=== PATIENT | male | born 1955 | race Caucasian/White ===

== ENCOUNTER 2016-05-20 16:47 | Emergency (ER) | payer SELFPAY ==
[2016-05-20] MEDS ORDERED: 0.9 % SODIUM CHLORIDE 1,000 ML IV SCH (18:00)
[2016-05-20] MEDS ORDERED: HYOSCYAMINE SULFATE 0.125 MG TAB.SUBL SL ONE (18:01)
[2016-05-20] MEDS ORDERED: METOCLOPRAMIDE HCL 5 MG TABLET PO ONE (18:01)
[2016-05-20] MEDS ORDERED: ONDANSETRON HCL/PF 4 MG/ 2ML VIAL IVP ONE (18:04)
[2016-05-20 18:05] LABS: BASOPHILS % 0.2 (0.0-1.5); EOSINOPHILS % 0.4 % (0.0-6.8); MEAN CORPUSCULAR HEMOGLOBIN 31.2 pg (28.0-34.0); MONOCYTES # 0.7 # k/uL (0.0-0.9); MONOCYTES % 3.9 % (0.0-11.0); NEUTROPHILS # 13.8 # k/uL (1.4-7.7)
[2016-05-20] MEDS ORDERED: 0.9 % SODIUM CHLORIDE 1,000 ML IV ONE ×2 (18:06→19:41)
[2016-05-20 18:34] LABS: eGFR (African) > 60; eGFR (Non-African) > 60
--- NOTE | 2016-05-20 18:57 | Diagnostic Imaging Report ---
[facility] [id number] [facility] [address] [place], [place]. [address] Report Submission Date: May 20, 2016 6:55:50 PM CDT Patient Study Name: GARRICK GRANADOS Date: May 20, 2016 6:22:48 PM CDT Modality Type: CT\SR Gender: M Description: CT ABD & PELVIS W/O CO : 51 Institution: [facility] Physician: GARRICK PRESSLEY - ER CT abdomen and pelvis without IV contrast Clinical history: Abdominal pain for 1 month , nausea , vomiting and diarrhea with weight loss Radiation dose DLP [id number] Air in the portal venous system of the liver. 3.4 cm mass of the left adrenal gland with 2 cm 2nd mass inferior to it suspicious for a adrenal metastases. Normal pancreas and spleen. Normal kidneys. Intestinal pneumatosis which could be a sign of a ischemic bowel. No edema or bowel obstruction. No free fluid in the abdomen . Large prostate up to 5 cm. Degenerated disc at L5/S1. Impression: Air in the portal venous system of the liver with an intestinal pneumatosis , which could be a sign of a ischemic bowel but appear to be less likely , probably benign process, clinical correlation is recommended . Left adrenal masses suspicious for metastases Large prostate , degenerative disc and L5/S1 and Electronically signed on May 20, 2016 6:55:50 PM CDT by: Reji MAYA
[2016-05-20] MEDS ORDERED: PHARMACY KEY 1 EACH EACH MC ONE (19:36)
--- NOTE | 2016-05-20 19:44 | ED Physician Documentation ---
Abdominal Pain - HISTORIAN Historian: patient - HPI Stated Complaint: abdominal pain Chief Complaint: Abdominal Pain Additonal Information: pain over last month, worse today, n/v today, sporadic, loose stools, belching, no melena, no hematochezia Onset: hours (3-4) Duration: sudden-onset, persistent, worse Timing: worse Context: denies: out of country travel, bad food, recent trauma Severity: moderate Quality: aching Front/Back of Body, Lg (Color): 1 - pain Associated Symptoms: nausea, vomiting, diarrhea Exacerbated by: movements Relieved by: nothing, other (helped by drawen leg position) Further Comments: no - ROS CONST: no problems GI/: other (as above) CVS/RESP: none EYES/ENT: none MS/SKIN/LYMPH: none NEURO/PSYCH: none - SOCIAL HX Smoking History: cigarettes Alcohol Use: none Drug Use: none - FAMILY HX Family History: no significant history - PAST HX Past History: none Ischemic Bowel Risk Factors: none Other History: none Surgeries/Procedures: none Immunizations: referred to PCP Home Medications: Ambulatory Orders Medication Instructions Recorded Omeprazole [Prilosec] 20 mg PO 05/20/16 Allergies/Adverse Reactions: Allergies Allergy/AdvReac Type Severity Reaction Status Date / Time No Known Allergies Allergy Verified 05/20/16 18:25 - VITAL SIGNS Vital Signs: Vital Signs Temp Pulse Resp BP Pulse Ox 97.7 F 96 H 18 158/96 98 05/20/16 17:02 05/20/16 17:02 05/20/16 17:02 05/20/16 17:02 05/20/16 17:02 - REVIEWED ASSESSMENTS Nursing Assessment Reviewed: Yes Vitals Reviewed: Yes Progress - Results/Orders Results/Orders: cbc, cmp, ua, amylase, ct abdomen/pelvis ordered - Progress Progress: pt. given 10 mg Reglan, 0.25 mg hyoscyamine, 8 mg Zofran in er with decrease in pain from 9 to 5/10 Critical Care Note - Critical Care Note Total Time (mins): 0 ED Results Lab/Radiology - Lab Results Lab Results: Lab Results 05/20/16 05/20/16 17:51 17:51 WBC 17.75 K/ul H K/ul (4.00-12.00) RBC 5.04 M/ul M/ul (3.90-5.20) Hgb 15.7 g/dL g/dL (12.0-18.0) Hct 45.2 % % (37.0-53.0) MCV 89.7 fl fl (80.0-100.0) MCH 31.2 pg pg (28.0-34.0) MCHC 34.7 g/dL g/dL (30.0-36.0) RDW 13.6 % % (11.3-14.3) Plt Count 282 K/mm3 K/mm3 (130-400) Neut % (Auto) 77.6 % % (39.0-79.0) Lymph % (Auto) 16.6 % % (16.0-50.0) Kershaw % (Auto) 3.9 % % (0.0-11.0) Eos % (Auto) 0.4 % % (0.0-6.8) Baso % (Auto) 0.2 (0.0-1.5) Neut # 13.8 # k/uL H # k/uL (1.4-7.7) Lymph # 3.0 # k/uL # k/uL (0.6-4.0) Kershaw # 0.7 # k/uL # k/uL (0.0-0.9) Eos # 0.1 # k/uL # k/uL (0.0-0.6) Baso # 0.0 # k/uL # k/uL (0.0-0.5) Reactive Lymphs % 1.2 % % (0.0-5.0) Reactive Lymphs # 0.2 # k/uL # k/uL (0.0-0.8) Sodium 139 mmol/L mmol/L (136-145) Potassium 3.1 mmol/L L mmol/L (3.5-5.0) Chloride 103 mmol/L mmol/L (98-110) Carbon Dioxide 25 mmol/L mmol/L (20-32) BUN 16 mg/dL mg/dL (10-26) Creatinine 0.5 mg/dL mg/dL (0.4-1.5) Estimated Creat Clear 207 Est GFR ( Amer) > 60 (60 - ) Est GFR (Non-Af Amer) > 60 (60 - ) Glucose 189 mg/dL H mg/dL (70-99) Calcium 9.7 mg/dL mg/dL (8.5-10.5) Total Bilirubin 0.5 mg/dL mg/dL (0.2-1.2) AST 13 U/L U/L (0-41) ALT 21 U/L U/L (0-45) Alkaline Phosphatase 120 U/L H U/L (46-116) Total Protein 7.3 g/dL g/dL (6.0-8.5) Albumin 4.5 g/dL g/dL (3.0-5.5) Amylase 31 U/L U/L (20-104) - Radiology Radiology Impressions: ct of abdomen shows air in portal vein and intestinal pneumatosis suggestive of ischemic bowel disease. - Orders Orders: ED Orders Category Date Time Status Place Saline Lock/IV Now Care 05/20/16 18:[address] ABD & PELVIS W/O CON Stat Exams 05/20/16 Completed AMYLASE Routine Lab 05/20/16 17:51 Completed CBC/PLATELET/DIFF Routine Lab 05/20/16 17:51 Completed CMP Routine Lab 05/20/16 17:51 Completed URINALYSIS Routine Lab 05/20/16 17:51 Ordered 0.9 % Sodium Chloride [Normal Saline] 1,000 ml Med 05/20/16 18:00 Ordered IV .Q1H Hyoscyamine Sulfate [[place]scimin Sl] Med 05/20/16 18:01 Discontinued 0.25 mg SL NOW ONE Metoclopramide HCl [Reglan] Med 05/20/16 18:01 Discontinued 10 mg PO NOW ONE Ondansetron HCl/Pf [Zofran 4 mg/2 ml] Med 05/20/16 18:04 Discontinued 8 mg IVP NOW ONE Abdominal Pain Physical Exam - Physical Exam General Appearance: alert, moderate distress (alternates from laying on side with knees drawn but sits up also without sevre increase in pain) EENT: eye inspection normal, ENT inspection normal, pharynx normal, no signs of dehydration, JACOB, no nystagmus, TM's nml NECK: normal inspection, thyroid normal, supple RESPIRATORY: no resp distress, chest non-tender, breath sounds normal CVS: reg rate & rhythm, heart sounds normal, equal pulses ABDOMEN: tenderness (generalized, worst in lower quadrants and suprapubic area.) , decreased BS, tympanic BS, distended, guarding BACK: normal inspection, no CVA tenderness SKIN: warm/dry, normal color EXTREMITIES: non-tender, normal range of motion, no evidence of injury NEURO: oriented X3, CN's nml as tested, motor nml, sensation nml, mood/affect nml, cognition normal Vital Signs: Vital Signs Temp Pulse Resp BP Pulse Ox 97.7 F 96 H 18 158/96 98 05/20/16 17:02 05/20/16 17:02 05/20/16 17:02 05/20/16 17:02 05/20/16 17:02 Discharge Clincal Impression: Ischemic bowel disease Home Medications: Ambulatory Orders Omeprazole [Prilosec] 20 mg PO 05/20/16 Comments: Case discussed with Dr. Valles at [facility] who accepts transfer. Transferred in stable condition via ground EMS Condition: Stable Disposition: XFER SHT-TRM HOSP Decision to Admit: NO Decision Time: 19:40
[2016-05-20 19:59] VITALS: BP 199/92
[2016-05-20] MEDS ORDERED: 0.9 % SODIUM CHLORIDE 1,000 ML with POTASSIUM CHLORIDE 40 MEQ IV SCH ×2 (20:00)
[2016-05-20] MEDS ORDERED: HYDROmorphone HCL/PF 1 MG/ML DISP.SYRIN ONE (20:06)
[2016-05-20] MEDS ORDERED: HYDROmorphone HCL/PF 1 MG/ML DISP.SYRIN IVP ONE (20:07)
== END 2016-05-20 19:59 | disposition short-term general hospital (02) ==
LOC: ED 16:47
DX: K55.9 Vascular disorder of intestine, unspecified (principal)
CPT/HCPCS: 74176; 80053; 82150; 85025; J1170; J2405; J3480; J7030; 96361; 96374; 96375; 99284; S1016